=== PATIENT | male | born 1960 | race Caucasian/White ===

== ENCOUNTER 2025-02-03 18:06 | Inpatient (IN) | payer BC, MEDICARE, SELFPAY ==
[2025-02-03] VITALS (11 sets, daily range): BP systolic 103–142; BP diastolic 69–92
[2025-02-03 15:28] LABS: Hematocrit 44.2 % (39.0-52.0); Hemoglobin 15.5 g/dL (13.0-18.0); Mean Corp Hgb Conc. 35.1 g/dL (33.0-37.0); Mean Corpuscular Volume 92.3 fL (80.0-94.0); Nucleated Red Blood Cells % 0 % (-); Platelet Count 195 10^3/uL (130-400); Red Cell Dist. Width 12.7 % (11.5-14.5)
[2025-02-03 15:38] LABS: ALT (SGPT) 38 U/L (0-50); AST (SGOT) 24 U/L (17-59); Albumin 4.4 g/dl (3.5-5.0); Alkaline Phosphatase 89 U/L (38-126); Blood Urea Nitrogen 20 mg/dl (9-20); Calcium 9.6 mg/dl (8.4-10.2); Carbon Dioxide 27 mmol/L (22-30); Chloride 107 mmol/L (98-107); Glucose 91 mg/dl (70-99); Potassium 4.3 mmol/L (3.5-5.1); Sodium 137 mmol/L (135-145); Total Protein 6.8 g/dl (6.3-8.2); eGFR > 60.00
[2025-02-03 15:49] LABS: Troponin I < 0.012 ng/ml
[2025-02-03 15:56] LABS: Magnesium 1.9 mg/dl (1.6-2.3)
--- NOTE | 2025-02-03 16:00 | ED.GENMED ---
History of Present Illness
General
Chief Complaint: Cardiac Symptoms
Source: patient
Time Seen by Provider: 02/03/25 15:34
History of Present Illness
History of Present Illness:
64-year-old male presents to the emergency room for evaluation of abnormal heart rhythms noted on his ICD. Patient has an ICD due to nonischemic cardiomyopathy. He has had ventricular tachycardia multiple times in the past. He has been shocked by
his device. He has had ablations in the past. Patient has been experiencing episodes of lightheadedness and palpitations. No chest pain per se. Patient received a call from [employer] that he has had multiple episodes of ventricular
tachycardia over the past 24 hours. Many have been treated with override pacing. Patient is known to Dr. Cam. He has had no changes in his medications recently.
Phy Exam
Physical Exam
Physical Exam:
General: Awake, Alert, Oriented X3. No acute distress.
Vitals: unremarkable
Head: Atraumatic
Eyes: Pupils equal, EOMI
Throat: Airway intact, no exudates
Neck: Trachea midline
Lungs: Clear and equal b/l
Heart: Regular rate, no murmurs
Abd: Soft, Nontender, No pulsatile mass
Neuro: Nonfocal
Skin: Warm, dry, no rash
Extremities: pulses equal b/l, no edema
Course
Orders/Labs/Results
Orders:
Orders
02/03/25 14:35
EKG [Electrocardiogram (*1)] Urgent
Reason for Study: Tachycardia
EKG- Treatment ONCE
02/03/25 14:53
Interrogate Pacemaker- Treatment ONCE
02/03/25 Dinner
Cholesterol Lowering
At Your Request: Full Participation
Cholesterol Lowering: Sodium, 2 Gram
02/03/25 15:01
Complete Blood Count/With Diff Urgent
Comprehensive Metabolic Panel Urgent
Magnesium Urgent
Phosphorus Urgent
Troponin I Urgent
02/03/25 16:49
CARDIOLOGY CONSULT Routine
Consulting Provider: Gurpreet Cam
Was physician already notified: Yes
02/03/25 16:59
Admit/Transfer Patient As Directed
Co-Sign Provider:
Level of Care: Inpatient admission
Assign to:: IVU
Physician / Group: Brennon Ellis
Diagnosis: ventricular tachycardia
Reason for Hospitalization: ventricular tachycardia
Expected length of stay greater than two midnights?: Yes
ELOS- Estimated Length of Stay in days: 3
I certify the patient meets the requirements for IP care: Yes
02/03/25 17:00
PRN Pain Medication Management As Directed
May give lesser potent ordered pain med per pt: Yes
preference::
Protocol:: Medication orders for pain may be administered in a
manner that supports deferring to patient preference
when the pt is:
- Requesting an ordered lesser potent pain medication.
Least to most potent pain medications are defined
as: acetaminophen < NSAID < tramadol < opioids
(morphine, oxycodone, hydromorphone).
- Requesting a lesser dose of the same medication IF
ORDERED.
- Requesting a less intrusive route of administration
if both routes are prescribed by the provider (PO <
IV).
02/03/25 17:01
Code Status As Directed
Resuscitation Status: Full Code
02/03/25 21:05
Atorvastatin [Lipitor] 20 mg PO QPM
Enoxaparin Sodium [Lovenox] 40 mg SC QPM
Lisinopril [Zestril] 2.5 mg PO BID
Metoprolol Xl [Toprol Xl] 100 mg PO QPM
02/03/25 21:05
Activity As Directed
Activity Level: As Tolerated
INT (Intravenous Needle Therapy) As Directed
Comment: maintain peripheral IV access
Intake/ Output As Directed
Frequency: Per unit guidelines
Vital Signs As Directed
Frequency: Per unit guidelines
Weight As Directed
Frequency: Once
Comment: on admission
DX Deep Vein Thrombosis Video Routine
02/04/25 06:00
Echo 2D MMode Color/Doppler IN AM
Reason for Study: VT, history of CM
NPO
Allow oral meds: Yes
Allow clear liquids: No
Basic Metabolic Panel IN AM
Complete Blood Count/No Diff IN AM
02/04/25 08:00
Aspirin Chewable [Low Strength Aspirin] 81 mg PO DAILY
Flecainide [Tambocor] 100 mg PO Q12
Magnesium Oxide 500 mg PO DAILY
Metoprolol Xl [Toprol Xl] 50 mg PO DAILY
Pantoprazole [Protonix] 40 mg PO DAILY
Potassium Chloride [KCl] 20 meq PO DAILY
Abnormal Lab Results
02/03/25
15:01
MCH 32.4 H pg
(27.0-31.0)
MPV 11.8 H fL
(7.4-10.4)
Abs Immat Gran (auto) 0.1 H 10^3/uL
(0-0.05)
Absolute Monos (auto) 1.0 H 10^3/uL
(0.1-0.6)
Immature Gran % 0.9 H %
(0-0.5)
Monocytes % 10.6 H %
(1.7-9.3)
02/03/25 15:01
02/03/25 15:01
Vital Signs
Initial and Last Documented VS:
Initial Vital Signs
Pulse Resp BP Pulse Ox
71 18 117/76 97
02/03/25 14:42 02/03/25 14:42 02/03/25 14:42 02/03/25 14:42
Last Documented Vital Signs
Pulse Resp BP Pulse Ox
71 16 123/78 96
02/03/25 21:21 02/03/25 20:52 02/03/25 21:21 02/03/25 20:52
MDM/Problems Addressed
Differential Diagnosis Includes:
Electrode abnormality, ventricular tachycardia from ischemia, ventricular tachycardia from scar tissue
MDM/Problems Addressed:
Patient's device detected multiple episodes of ventricular tachycardia. Patient seen by cardiology here in the emergency room. Will require hospitalization to explore reasons why he is having recurrent V. tach. Fortunately patient did not have
any episodes here in the emergency room. Stable for admission.
*Pulse Oximetry
SaO2: 98
Oxygen Mode of Delivery: Room air
Patient hypoxic: no
*EKG
Interpreted by ED Provider?: Yes
Interpretation: abnormal
Heart Rate: 70
Rate: normal
Rhythm: other (Atrial paced)
[place]: normal axis
QRS Pattern: right bundle branch block
Ischemia: non-specific ST changes
*Ferryboat Captain Interpretation
Rate: normal
Interpretation: abnormal
Rhythm: other (Atrial paced)
*Critical Care Note
Total Time (30-74mins, 75-104mins- exclusive of procedures): Not Applicable
ED Attending Note
-
Portions of this chart may have been created with voice recognition software.� Occasional wrong word or��sound alike� substitutions may have occurred due to the inherent limitations of voice recognition software.
Discharge Plan
Departure
Patient Disposition: Admit
Date of Disposition: 02/03/25
Time of Disposition: 16:00
Presentation/result/management discussed w/ accepting MD/DO: Hospitalist
Condition: Fair
Discharge Problem:
Ventricular tachycardia
Interventions
Interventions:
*Risk Screen - Suicide Last Done: 02/03/25 14:42
*General Assessment Last Done: 02/03/25 14:42
*Neglect/Abuse Screening Last Done: 02/03/25 15:46
*ED- Fall Risk Assessment Last Done: 02/03/25 15:46
*ED COVID-19 Vaccine History Last Done: 02/03/25 15:46
*Nursing Disposition Last Done: 02/03/25 21:00
ED- Pulmonary Assessment Last Done: 02/03/25 15:46
ED- Cardiac Assessment Last Done: 02/03/25 15:46
Discharge Date and Time
Discharge Date/Time: 02/03/25 21:00
--- NOTE | 2025-02-03 16:08 | CON.CAR ---
Addendum entered and electronically signed by Gurpreet Cam MD 02/03/25 17:36:
Patient seen and examined
. GILDA Morales's note and assessment
Reviewed his device interrogation demonstrating 29 ATP events for ventricular tachyarrhythmia 160 to 185 bpm. Associated with some lightheadedness although no hemodynamic embarrassment. He has a complex prior ventricular arrhythmia history. He
does have history of coronary disease although at MRI no scar in either right or left ventricle. He has had 3 VT ablations 2 prior elsewhere and I performed his third VT ablation in 2021. He was not noted to have scar on endocardial mapping in
either ventricle or later fractionated signal. He was inducible for a right ventricular tricuspid annular basal septal VT which was poorly tolerated an extensive ablation was performed in the gutter of the RV at the tricuspid annulus and lesions in
opposition from the left ventricular basal septum. The middle cardiac vein was also mapped and demonstrated to be late for activation for the tachyarrhythmia. He is intolerant to amiodarone in the past and has had inefficacy with dofetilide and
mexiletine. We initiated dofetilide after his 2021 procedure and he has been relatively quiet for the last 3 years. Increase stress at home right prior to the ATP events. Given the paucity of scar and some stress related trigger I wonder whether
his mechanism is from automaticity rather than macro reentry.
Currently seen in the ER in sinus rhythm without recent ventricular arrhythmia the last ATP event was 1:52 AM today. Otherwise he feels well except for increased stress and is somewhat anxious about ventricular arrhythmias.
Examination:
H&T normocephalic atraumatic
JVP 6
Cor regular no murmur
Device noted
Device interrogation reviewed
Telemetry reviewed
Alert and orient x 3
Nonfocal neurologically
No extremity edema
Primary Cyber Defense Analyst: Dr. De La Cruz
Primary EP: Dr. Cam
Assessment:
Refractory VT
s/p single lead ICD, removed in 2013 for lead fracture, replaced with SQ-ICD, s/p explant of SQ device with [employer] [place] ICD reimplanted in 01/2020, not MRI compatible
s/p VT ablation at [facility] 2018
s/p VT ablation at [facility] 2019
multiple ATP events on mexiletine
s/p VT ablation at 03/27/22
chronic tikosyn therapy
prior intolerance to amiodarone
30 episodes of VT with ATP termination 02/02/25PTSD secondary to prior ICD shocks
CAD s/p RCA PCI 2009
History of ischemic cardiomyopathy with improved EF
HTN
HLD
RBBB/LAFB
Former smoker/emphysema
Thyroid nodules
Anxiety
ECHO 03/11/2023: EF 50%, mild concentric LVH, basal and mid inferior wall and basal inferolateral segments abnormal, no significant valvular abnormalities
Plan:
- Patient is a pleasant 64-year-old male with past medical history of refractory VT with prior ablation x 3, most recently in 2021 maintained on chronic Tikosyn therapy who presents to the MD after having 30+ episodes of ATP for VT yesterday and
many additional episodes of NSVT which did not require ATP. He felt poorly with heart pounding/racing. Prior to yesterday, he did have an episode of VT requiring ATP on 01/15, as well as 1 on 01/16, and 01/20/2025.
- records obtained and reviewed from Dr. De La Cruz's office including echo, office visit, device interrogation
- Would admit to IVU with plan for Tikosyn washout and will initiate flecainide 100 mg twice daily in a.m. Follow EKG. Given the increased rest recently which correlate with an increase in arrhythmia I wonder whether automaticity is playing a role
given prior absence of electroanatomic scar on biventricular mapping and cardiac MRI demonstrating an absence of cardiac scar despite his history of coronary artery disease.
- Follow closely on telemetry. Could use IV amiodarone overnight if noted to have additional episodes
- Will plan for cardiac catheterization in a.m. to reassess coronary anatomy. initial trop negative
- EKG a paced
- Check echo, last from 2022 with results as above. continue OP asa.
- Potassium stable at 4.3. Check magnesium. continue K/mag repletion
- Continue outpatient ezfi-xgzozsd-Lcmglm 50 mg every morning and 100 mg every afternoon
- Repeat VT ablation would be something to consider if remains refractory, however given 3 prior ablations would attempt to manage medically first.
- Discussed with ER physician
- Discussed with patient and at bedside
- Discussed with IVU nursing
Original Note:
Consultation
Consultation Request
Date/Time Consultation Performed: 02/03/25
Requesting Provider: Dr. Tomlin
Performing Provider: Dali Morales PA-C for Dr. Cam
Reason for Consultation: VT requiring ATP
Medical History
-
Chief Complaint: VT
History of Present Illness:
Patient is a 64-year-old male with past medical history of refractory VT with 3 prior VT ablations, most recently at [facility] 03/2022. He reports he has been doing pretty well with limited VT until a day and a half ago. He reports he
started with heart pounding/palpitations which woke him from sleep around 1AM and had multiple episodes throughout day yesterday. He never received a shock from his device. Upon interrogation from ATC, patient received 30+ rounds of ATP last
evening which terminated his VT episodes. Patient states he has been under increased stress related to issues with his car, and has also been out in the heat a decent amount. He reports he has been taking supplemental potassium and magnesium. He
is chronically on Tikosyn. He has previous intolerances to amiodarone, and mexiletine was inefficacious in past. Cardiology consulted for evaluation. Presently in apaced rhythm by EKG.
PMH:
Refractory VT
s/p single lead ICD, removed in 2013 for lead fracture, replaced with SQ-ICD, s/p explant of SQ device with [employer] ICD reimplanted in 01/2020
s/p VT ablation at [facility] 2018
s/p VT ablation at [facility] 2019
multiple ATP events on mexiletine
s/p VT ablation at 03/27/22
chronic tikosyn therapy
prior intolerance to amiodarone
PTSD secondary to prior ICD shocks
CAD s/p RCA PCI 2009 for '[place]'
History of ischemic cardiomyopathy with improved EF
HTN
HLD
RBBB/LAFB
Former smoker/emphysema
Thyroid nodules
Anxiety
Past Medical History
Past Medical History: Other (in HPI)
Social History
Tobacco: Former Smoker
Personal:
Living: With Family
Employment: Employed
Family History
Family History: CAD
Allergies / Home Medications
Allergy/AdvReac Type Severity Reaction Status Date / Time
No Known Allergies Allergy Verified 02/03/25 14:54
�Medication �Instructions �Recorded �Confirmed �Type
aspirin 81 mg chewable tablet 81 mg PO DAILY Blood clot 03/18/22 03/27/22 History
prevention/tx
atorvastatin 20 mg tablet 20 mg PO HS High cholesterol 03/18/22 03/27/22 History
citalopram 20 mg tablet (Celexa) 20 mg PO DAILY Mental 03/18/22 03/27/22 History
Health/Anxiety
esomeprazole magnesium 20 mg 20 mg PO DAILY Gastrointestinal 03/18/22 03/27/22 History
capsule,delayed release issue
lisinopril 5 mg tablet 2.5 mg PO BID Blood pressure 03/18/22 03/27/22 History
metoprolol succinate 100 mg 100 mg PO HS Heart 03/18/22 03/27/22 History
tablet,extended release 24 hr disease/condition
dofetilide 500 mcg capsule 500 mcg PO Q12H #60 caps 03/30/22 Rx
magnesium oxide 500 mg PO DAILY #30 tabs 03/30/22 Rx
metoprolol succinate 100 mg 100 mg PO DAILY #30 tabs 03/30/22 Rx
tablet,extended release 24 hr
potassium chloride 20 mEq 20 meq PO DAILY #30 tabs 03/30/22 Rx
tablet,extended release
Review of Systems
-
History Source: Patient and Family
All other systems: Negative unless noted
Physical Exam
Vital Signs
Pulse Resp BP Pulse Ox
70 13 121/76 98
02/03/25 15:45 02/03/25 15:45 02/03/25 15:35 02/03/25 16:04
Lab Results
02/03/25 15:01
02/03/25 15:01
Troponin I < 0.012 ng/ml 02/03/25 15:01
Physical Exam
General: No Apparent Distress and Comfortable
HEENT: Normocephalic, Anicteric and Moist Mucous Membranes
Respiratory: Clear and Non Labored Respirations
Cardiac: S1/S2 and Regular Rhythm
GI: Soft, Non Tender, Non Distended and Normal Bowel Sounds
Musculoskeletal: No Clubbing, No Cyanosis and No Edema
Skin: Warm and Dry
Neuro: AO x 3
Impression / Plan
-
Primary Cyber Defense Analyst: Dr. De La Cruz
Primary EP: Dr. Cam
Assessment:
Refractory VT
s/p single lead ICD, removed in 2013 for lead fracture, replaced with SQ-ICD, s/p explant of SQ device with [employer] ICD reimplanted in 01/2020, not MRI compatible
s/p VT ablation at [facility] 2018
s/p VT ablation at [facility] 2019
multiple ATP events on mexiletine
s/p VT ablation at 03/27/22
chronic tikosyn therapy
prior intolerance to amiodarone
30 episodes of VT with ATP termination 02/02/25
PTSD secondary to prior ICD shocks
CAD s/p RCA PCI 2009
History of ischemic cardiomyopathy with improved EF
HTN
HLD
RBBB/LAFB
Former smoker/emphysema
Thyroid nodules
Anxiety
ECHO 03/11/2023: EF 50%, mild concentric LVH, basal and mid inferior wall and basal inferolateral segments abnormal, no significant valvular abnormalities
Plan:
- Patient is a pleasant 64-year-old male with past medical history of refractory VT with prior ablation x 3, most recently in 2021 maintained on chronic Tikosyn therapy who presents to the MD after having 30+ episodes of ATP for VT yesterday and
many additional episodes of NSVT which did not require ATP. He felt poorly with heart pounding/racing. Prior to yesterday, he did have an episode of VT requiring ATP on 01/15, as well as 1 on 01/16, and 04/10/24.
- records obtained and reviewed from Dr. De La Cruz's office including echo, office visit, device interrogation
- Would admit to IVU with plan for Tikosyn washout and will initiate flecainide 100 mg twice daily in a.m. Follow EKG
- Follow closely on telemetry. Could use IV amiodarone overnight if noted to have additional episodes
- Will plan for cardiac catheterization in a.m. to reassess coronary anatomy. initial trop negative
- EKG a paced
- Check echo, last from 2022 with results as above. continue OP asa.
- Potassium stable at 4.3. Check magnesium. continue K/mag repletion
- Continue outpatient plqe-cyudgfj-Wxbknj 50 mg every morning and 100 mg every afternoon
- Repeat VT ablation would be something to consider if remains refractory, however given 3 prior ablations would attempt to manage medically first.
- Discussed with ER physician
- Discussed with patient and at bedside
- Discussed with IVU nursing
Data Reviewed
-
EKG: Tracing Personally Visualized and interpreted
Medical Tests (Nuc Med, Echo etc): Report Reviewed by me
Labs: Labs Reviewed by me
Old Records: Reviewed
--- NOTE | 2025-02-03 16:15 | HPS.HSE ---
Family Physician
-
Family Physician: Bel Hurst
Chief Complaint
-
abnormal heart rhythm noted on ICD
History of Present Illness
Patient is a 64-year-old male with past medical history significant for non-ischemic cardiomyopathy, atrial fibrillation, ventricular tachycardia, hyperthyroidism and CAD who presented to [facility] ED for evaluation of abnormal heart rhythm noted on ICD.
Patient states he received a call from doctors around [phone] telling him to go straight to ED for evaluation of continuous tachycardia being read on his ICD. He reports multiple shocks yesterday. Today he states he was told that override pacing
was attempting to control the tachycardia. Only complaint is increased fatigue. Patient denies any recent illness, fevers, chills, cough, shortness of breath, chest pain, nausea, vomiting or changes to bowel or bladder.
Medical History
Past Medical History
Past Medical History: Reports Other
Additional Past Medical History:
non-ischemic cardiomyopathy
atrial fibrillation
ventricular tachycardia
hyperthyroidism
CAD
PTSD
Past Surgical History: Reports Other
Additional Past Surgical History:
ICD x3
cardiac ablation x3
cardiac cath with stents
Social History
Tobacco: Former Smoker (quit 8-9years ago)
Alcohol: None
Drug: None
Personal:
Living: With Family
Employment: Disabled
Family History
Family History: Not pertinent
Allergies / Home Medications
Allergies reflects when Allergies were last updated in [facility].
Home Medications with original date entered in [facility]
Allergy/Medication List:
Allergies
Allergy/AdvReac Type Severity Reaction Status Date / Time
No Known Allergies Allergy Verified 02/03/25 14:54
Home Medications
aspirin 81 mg chewable tablet 81 mg PO DAILY Blood clot prevention/tx 03/18/22
atorvastatin 20 mg tablet 20 mg PO QPM High cholesterol 03/18/22
citalopram 20 mg tablet (Celexa) 20 mg PO DAILY Mental Health/Anxiety 03/18/22
esomeprazole magnesium 20 mg capsule,delayed release 20 mg PO DAILY Gastrointestinal issue 03/18/22
metoprolol succinate 100 mg tablet,extended release 24 hr 50 mg PO DAILY Heart disease/condition 03/18/22
dofetilide 500 mcg capsule 500 mcg PO Q12H #60 caps 03/30/22
magnesium oxide 500 mg PO DAILY #30 tabs 03/30/22
lisinopril 2.5 mg tablet 2.5 mg PO BID 02/03/25
metoprolol succinate 100 mg tablet,extended release 24 hr 100 mg PO QPM 02/03/25
omega 8-lhj-tjx-fish oil 1,200 mg (144 mg-216 mg) capsule (Fish Oil) 2 cap PO QPM 02/03/25
potassium chloride 20 mEq tablet,extended release(part/cryst) 20 meq PO DAILY 02/03/25
Review of Systems
-
History Source: Patient
Constitutional: Reports Fatigue
EENT: Reports No Symptoms
Respiratory: Reports No Symptoms
Cardiac: Reports No Symptoms
Abdomen/GI: Reports No Symptoms
: Reports No Symptoms
Musculoskeletal: Reports No Symptoms
Skin: Reports No Symptoms
Neurological: Reports No Symptoms
Endocrine: Reports No Symptoms
Hematologic/Lymphatic: Reports No Symptoms
Psych: Reports No Symptoms
Physical Exam
Vital Signs
Vital Signs
Pulse Resp BP Pulse Ox
70 13 121/76 98
02/03/25 15:45 02/03/25 15:45 02/03/25 15:35 02/03/25 16:04
Physical Exam
General: Well Developed, Well Nourished and No Apparent Distress
HEENT: NormoCephalic, Moist mucous membranes and Atraumatic
Respiratory: Clear and Non Labored Respirations
Cardiac: S1/S2 and Regular Rhythm; No Murmur
GI: Soft, Non Tender, Non Distended and Normal Bowel Sounds
Rectal: Deferred by Provider
Musculoskeletal: No Clubbing, No Cyanosis and No Edema
Skin: IV/Catheter Site
Neuro: Awake, AO x 3 and Nonfocal/grossly intact
Psych: Calm and Intact Judgment/Insight
Laboratory Results
-
02/03/25 15:
02/03/25 15:
Laboratory Results
Total Bilirubin 1.1 mg/dl (0.2-1.3) 02/03/25 15:
AST 24 U/L (17-59) 02/03/25 15:
ALT 38 U/L (0-50) 02/03/25 15:
Alkaline Phosphatase 89 U/L (38-126) 02/03/25 15:
Troponin I < 0.012 ng/ml 02/03/25 15:
Data Reviewed
-
Medical Tests (Nuc Med, Echo, EKG etc): Report Reviewed by me (EKG: Atrial-paced rhythm RIGHT BUNDLE BRANCH BLOCK)
Lab Data: Labs Reviewed by me
Impression/Plan
-
IMPRESSION/PLAN:
#Ventricular tachycardia
EKG: Atrial-paced rhythm
RIGHT BUNDLE BRANCH BLOCK
- Admit to IVU
- Consult Cardiology
- Cardiology plan to complete Tikosyn washout and will initiate flecainide
- NPO at midnight for potential cardiac cath
- ECHO in AM
#non-ischemic cardiomyopathy
#atrial fibrillation
#ventricular tachycardia
s/p ICD placement
- continue metoprolol
#CAD
- continue aspirin and atorvastatin
#PTSD
- hold Celexa
Code status: full code
DVT prophylaxis: lovenox sq
--- NOTE | 2025-02-03 16:47 | W.PN.UPDATE ---
Update Note
Progress Note Update
This note serves as an addendum to the H&P by Faby Kate on 02/03/25.
History of Presenting Illness
64-year-old male with past medical history significant for non-ischemic cardiomyopathy, atrial fibrillation, ventricular tachycardia, hyperthyroidism and CAD who presented to [facility] ED for evaluation of abnormal heart rhythm noted on ICD. Patient
stated he received a call from doctors around [phone] telling him to go straight to ED for evaluation of continuous tachycardia being read on his ICD. Today he states he was told that override pacing was attempting to control the tachycardia. He
reported fatigue, but denied any recent illness, fevers, chills, cough, shortness of breath, chest pain, nausea, vomiting or changes to bowel or bladder.
Vital Signs
AFVSS
Physical Exam
General: Well Developed, Well Nourished and No Apparent Distress
HEENT: Normocephalic, Moist mucous membranes and Atraumatic
Respiratory: Clear and Non Labored Respirations
Cardiac: S1/S2 and Regular Rhythm
GI: Soft, Non Tender, Non Distended and Normal Bowel Sounds
Musculoskeletal: No Cyanosis and No Edema
Skin: Warm. Dry.
Neuro: Awake, AO x 3 and Nonfocal/grossly intact
Psych: Calm and Intact Judgment/Insight
Assessment/Plan
#Refractory Ventricular Tachycardia on chronic Tikosyn Therapy
#History of refractory VT with prior ablation x 3
- Admit to IVU
- Consult Cardiology
- Cardiology plan to complete Tikosyn washout and will initiate flecainide tomorrow
- Continue outpatient elxc-sgppkzi-Rkkana 50 mg every morning and 100 mg every afternoon
- EKG tomorrow
- NPO at midnight for cardiac cath tomorrow to look at coronary anatomy
- ECHO in AM
- Monitor and optimize potassium and magnesium
#CAD s/p RCA PCI 2009
- continue aspirin and atorvastatin
- Continue outpatient yjnk-jfryhrd-Txrbus 50 mg every morning and 100 mg every afternoon
#History of ischemic cardiomyopathy with improved EF
- Continue medications as above
#HTN
- Continue beta talat
#HLD
- Continue Atorvastatin
#RBBB/LAFB
#Former smoker/emphysema
#Thyroid nodules
#Anxiety
#PTSD
- hold Celexa given prolonged QTc
Code status: Full Code
DVT prophylaxis: Lovenox subq
--- NOTE | 2025-02-03 21:13 | PTCARENOTE ---
received the patient from the ED. AAOx3. denies any cp/sob. Apaced on tele 70s. bp 142.92. reviewed plan of care with patient and verbalized understanding. NPO at midnight. independent in the room. call escobedo within reach.
[2025-02-03] MEDS: TOPROL XL 100 MG PO (21:21)
[2025-02-03] MEDS: LIPITOR 20 MG PO (21:21)
[2025-02-03] MEDS: ZESTRIL 2.5 MG PO (21:22)
[2025-02-03] MEDS: LOVENOX 40 MG SC (21:22)
[2025-02-03 21:48] LABS: Troponin I 0.013 ng/ml
[2025-02-04] VITALS (16 sets, daily range): BP systolic 90–125; BP diastolic 64–85; BMI 31.2
[2025-02-04 04:16] LABS: Hematocrit 44.9 % (39.0-52.0); Hemoglobin 15.6 g/dL (13.0-18.0); Mean Corp Hgb Conc. 34.7 g/dL (33.0-37.0); Mean Corpuscular Volume 93.3 fL (80.0-94.0); Platelet Count 177 10^3/uL (130-400); Red Cell Dist. Width 12.7 % (11.5-14.5)
[2025-02-04 04:44] LABS: Blood Urea Nitrogen 19 mg/dl (9-20); Calcium 9.5 mg/dl (8.4-10.2); Carbon Dioxide 25 mmol/L (22-30); Chloride 109 mmol/L (98-107); Estimated Creatinine Clearance 117 ml/min; Glucose 101 mg/dl (70-99); Magnesium 1.9 mg/dl (1.6-2.3); Potassium 4.1 mmol/L (3.5-5.1); Sodium 139 mmol/L (135-145); eGFR > 60.00
[2025-02-04 04:56] LABS: Troponin I < 0.012 ng/ml
--- NOTE | 2025-02-04 07:25 | W.PN.CARDCBS ---
Addendum entered and electronically signed by Gurpreet Cam MD 02/04/25 09:33:
patient seen and examined
agree with GILDA Morales's plan
exam:
Per GILDA Morales
AAo x 3
non focal neurologically
cor regular
jvp flat
no edema
Assessment:
Refractory VT
s/p single lead ICD, removed in 2013 for lead fracture, replaced with SQ-ICD, s/p explant of SQ device with [place] [employer] DC ICD reimplanted in 01/2020, not MRI compatible
s/p VT ablation at [facility] 2018
s/p VT ablation at [facility] 2019
multiple ATP events on mexiletine
s/p VT ablation at 03/27/22
chronic tikosyn therapy
prior intolerance to amiodarone
30 episodes of VT with ATP termination 02/02/25PTSD secondary to prior ICD shocks
CAD s/p RCA PCI 2009
History of ischemic cardiomyopathy with improved EF
HTN
HLD
RBBB/LAFB
Former smoker/emphysema
Thyroid nodules
Anxiety
ECHO 03/11/2023: EF 50%, mild concentric LVH, basal and mid inferior wall and basal inferolateral segments abnormal, no significant valvular abnormalities
Plan:
-no VT overnight noted on review of tele, however is noted to have some brief AT. will increase toprol to 100mg BID
-start flecainide 100mg BID
-NPO for cardiac cath today. initial trop negative
-check echo
-follow K/mag. attempt to keep K>4 and mag>2
- Repeat VT ablation would be something to consider if remains refractory, however given 3 prior ablations would attempt to manage medically first. His arrhythmias appear to have an automatic component and flecainide or amiodarone can help there. He
has not tolerated amiodarone in the past
-for possible DC later today vs in AM pending results of cath, echo, and tele monitoring.
-will arrange OP follow up with ATC as well as Dr. Cam
Original Note:
Today's Communication / Plan
-
cath
echo
start flecainide
increase toprol to 100mg BID
Impression / Plan
-
Primary Acute Care Surgeon: Dr. De La Cruz
Primary EP: Dr. Cam
Assessment:
Refractory VT
s/p single lead ICD, removed in 2013 for lead fracture, replaced with SQ-ICD, s/p explant of SQ device with [employer] DC ICD reimplanted in 01/2020, not MRI compatible
s/p VT ablation at [facility] 2018
s/p VT ablation at [facility] 2019
multiple ATP events on mexiletine
s/p VT ablation at 03/27/22
chronic tikosyn therapy
prior intolerance to amiodarone
30 episodes of VT with ATP termination 02/02/25
PTSD secondary to prior ICD shocks
CAD s/p RCA PCI 2009
History of ischemic cardiomyopathy with improved EF
HTN
HLD
RBBB/LAFB
Former smoker/emphysema
Thyroid nodules
Anxiety
ECHO 03/11/2023: EF 50%, mild concentric LVH, basal and mid inferior wall and basal inferolateral segments abnormal, no significant valvular abnormalities
Plan:
-no VT overnight noted on review of tele, however is noted to have some brief AT. will increase toprol to 100mg BID
-start flecainide 100mg BID
-NPO for cardiac cath today. initial trop negative
-check echo
-follow K/mag. attempt to keep K>4 and mag>2
- Repeat VT ablation would be something to consider if remains refractory, however given 3 prior ablations would attempt to manage medically first.
-for possible DC later today vs in AM pending results of cath, echo, and tele monitoring.
-will arrange OP follow up with ATC as well as Dr. Cam
Progress Note - Acute Care Surgeon
Subjective
Date of Service: February 04, 2025
No complaints/issues overnight
Objective
Labs:
02/04/25 04:04
02/04/25 04:04
Labs
Hgb 15.6 g/dL (13.0-18.0) 02/04/25 04:04
Hct 44.9 % (39.0-52.0) 02/04/25 04:04
Plt Count 177 10^3/uL (130-400) 02/04/25 04:04
Sodium 139 mmol/L (135-145) 02/04/25 04:04
Potassium 4.1 mmol/L (3.5-5.1) 02/04/25 04:04
BUN 19 mg/dl (9-20) 02/04/25 04:04
Creatinine 0.7 mg/dL (0.7-1.3) 02/04/25 04:04
Glucose 101 mg/dl (70-99) H 02/04/25 04:04
Troponins
02/03/25 02/03/25 02/04/25
15:01 21:10 04:04
Troponin I < 0.012 0.013 < 0.012
Vital Signs and I&O:
Vital Signs
Temp Pulse Resp BP Pulse Ox
97.8 F 70 17 97/72 94
02/04/25 03:30 02/04/25 06:30 02/04/25 03:30 02/04/25 04:01 02/04/25 03:30
Vital Signs
Temp Pulse Resp BP Pulse Ox
97.8 F 70 17 97/72 94
02/04/25 03:30 02/04/25 06:30 02/04/25 03:30 02/04/25 04:01 02/04/25 03:30
Intake & Output
07/02/02/25 02/03/25 02/04/25
07:59 07:59 07:59 07:59
Intake Total 400 / 400
Balance 400 / 400
Physical Exam
Physical Exam
GEN: No distress, awake, alert, oriented x3
HEENT: supple, anicteric, mmm, eomi
LUNGS: CTA B/L, no wheezes/rales
CV: Reg, S1/S2, no murmur
ABD: soft, BS+, NT/ND
EXT: No cyanosis, clubbing, edema
NEURO: Gross non-focal
SKIN: Warm, pink, dry. No rash
[2025-02-04] MEDS: LOW STRENGTH ASPIRIN 81 MG PO (08:49)
[2025-02-04] MEDS: PROTONIX 40 MG PO (08:49)
[2025-02-04] MEDS: ZESTRIL 2.5 MG PO ×2 (08:49→20:50)
[2025-02-04] MEDS: KCL 20 MEQ PO (08:49)
[2025-02-04] MEDS: MAGNESIUM OXIDE 500 MG PO (08:49)
[2025-02-04] MEDS: TAMBOCOR 100 MG PO ×2 (09:42→20:49)
[2025-02-04] MEDS: TOPROL XL 100 MG PO ×2 (09:43→20:50)
--- NOTE | 2025-02-04 14:10 | W.PN.HOSP.TC ---
Today's Communication/Plan
-
Echo showed EF 30% today
I discussed with cardiology -- patient needs to be kept here overnight to fine tune GDMT
Beta talat increased
Continue to monitor in IVU
Assessment / Plan
Assessment / Plan
Physical Exam
General: Well Developed, Well Nourished and No Apparent Distress
HEENT: Normocephalic, Moist mucous membranes and Atraumatic
Respiratory: Clear and Non Labored Respirations
Cardiac: S1/S2 and Regular Rhythm
GI: Soft, Non Tender, Non Distended and Normal Bowel Sounds
Musculoskeletal: No Cyanosis and No Edema
Skin: Warm. Dry.
Neuro: Awake, AO x 3 and Nonfocal/grossly intact
Psych: Calm and Intact Judgment/Insight
Assessment/Plan
64-year-old male with past medical history significant for non-ischemic cardiomyopathy, atrial fibrillation, ventricular tachycardia, hyperthyroidism and CAD who presented to [facility] ED for evaluation of abnormal heart rhythm noted on ICD. Patient
stated he received a call from doctors around [phone] telling him to go straight to ED for evaluation of continuous tachycardia being read on his ICD. Today he states he was told that override pacing was attempting to control the tachycardia. He
reported fatigue, but denied any recent illness, fevers, chills, cough, shortness of breath, chest pain, nausea, vomiting or changes to bowel or bladder.
#Refractory Ventricular Tachycardia on chronic Tikosyn Therapy
#History of refractory VT with prior ablation x 3
#History of Intolerance to Amiodarone
#HFrEF
- Consulted Cardiology
- Start Flecainide 100 mg BID
- Outpatient hiyb-qheqzmf-Mnrlmi increased to 100 mg BID (at home, was on 50 mg every morning and 100 mg every afternoon)
- ECHO with EF 30%
- Monitor and optimize potassium and magnesium; strive to keep K>4 and mag>2
- Optimize GDMT given EF
- Continue to monitor in IVU
#CAD s/p RCA PCI 2009
- continue aspirin and atorvastatin
- Continue outpatient dfei-kiooxvg-Atbimb 50 mg every morning and 100 mg every afternoon
#HFrEF
#History of ischemic cardiomyopathy with improved EF
- Continue medications as above
#HTN
- Continue beta talat but at increased dose
#HLD
- Continue Atorvastatin
#RBBB/LAFB
#Former smoker/emphysema
#Thyroid nodules
#Anxiety
#PTSD
- hold Celexa given prolonged QTc
Code status: Full Code
DVT prophylaxis: Lovenox subq
Anticipated Discharge: Within 24 hours
Subjective/Interval History
-
Date of Service: February 04, 2025
Patient was seen and examined. He denied any chest pain or any other complaints.
Objective Data
-
Labs:
Laboratory Results
02/04/25
04:04
WBC 9.1
Hgb 15.6
Hct 44.9
Plt Count 177
Sodium 139
Potassium 4.1
Chloride 109 H
Carbon Dioxide 25
BUN 19
Creatinine 0.7
Glucose 101 H
Calcium 9.5
Vital Signs:
Vital Signs
Temp Pulse Resp BP Pulse Ox
98.1 F 71 20 102/76 96
02/04/25 11:52 02/04/25 12:45 02/04/25 11:52 02/04/25 11:51 02/04/25 11:52
I&O
02/03/25 02/04/25 02/05/25
06:59 06:59 06:59
Intake Total 400 / 400
Balance 400 / 400
[2025-02-04] MEDS: NSS 1000 IV (14:19)
--- NOTE | 2025-02-04 15:48 | W.PN.UPDATE ---
Update Note
Progress Note Update
reviewed echo findings with patient, EF now 30%. will plan to keep patient overnight for additional observation. continue flecainide. consider addition of aldactone if BP tolerates in AM. would consider for repeat cardiac MRI as OP. d/w hospitalist.
--- NOTE | 2025-02-04 17:12 | CM ---
spoke to pt in room, he is prev indep, lives with his fernanda 2 story home with 2 steps to enter. he denies any dc planning needs or dme's. plan is for dc to home when medically stable.
[2025-02-04] MEDS: LOVENOX 40 MG SC (18:14)
[2025-02-04] MEDS: LIPITOR 20 MG PO (18:14)
--- NOTE | 2025-02-04 18:42 | ITS.CL.CATH ---
[employer] - Catheterization
Cardiac Catheterization
Procedure Report:
LEFT HEART CATHETERIZATION
Date of Procedure: February 04, 2025
Referring: Gurpreet Cam
PROCEDURES:
1. Left heart catheterization, coronary angiogram.
2. Moderate sedation.
INDICATION: Ventricular tachycardia
ACCESS: Right radial artery, 6Fr. sheath, under US guidance.
HEMODYNAMICS : (mmHg)
AO (s/d) : 80/58
LVEDP : 16
No significant gradient across the aortic valve to suggest aortic stenosis.
CORONARY FINDINGS
Dominance: Right
Left Main Trunk (LMT): Large caliber vessel that gives rise to the LAD and LCx branches and is free of angiographic disease.
Left Anterior Descending Artery (LAD): Large caliber vessel that gives off 1 major diagonal branch as it courses along the anterior inter-ventricular groove before wrapping around the cardiac apex. There is mild to moderate diffuse atherosclerotic
plaque with coronary slow flow noted into the distal vessel without significant improvement from intracoronary nitroglycerin.
Left Circumflex Artery (LCx): Large caliber vessel that gives off 1 major arborizing obtuse marginal (OM) branch as it courses along the atrio-ventricular (AV) groove. There is mild diffuse atherosclerotic plaque with slow coronary flow not
significantly improved with intracoronary nitroglycerin.
Right Coronary Artery (RCA): Large caliber dominant vessel that gives rise to the posterior descending artery (RPDA) and postero-lateral ventricular (RPLV) branches distally. There is mild to moderate diffuse atherosclerotic plaque with slow
coronary flow not significantly improved post IC nitroglycerin. No obstructive lesions noted.
SEDATION: 47 minutes of procedural sedation was utilized. IV Midazolam and IV Fentanyl were administered. An independent lead medical technologist was present to assist with and help manage the patient's level of consciousness and physiologic status.
RADIATION SUMMARY: Fluoro Time (min): 2.9, Dose (mGy): 580.15, DAP (Gy.cm2) : 42 point
Closure Device: There were no immediate intra-procedural complications. The sheath was pulled in the hot plate plywood press laborer and a vascular-band applied to the right wrist for radial artery hemostasis using the patent hemostasis technique.
CONCLUSIONS
1. No obstructive coronary artery disease.
2. Coronary slow flow noted without significant improvement from IC nitroglycerin.
3. LVEDP of 16 mmHg.
RECOMMENDATIONS
1. Wean radial band per protocol. Monitor right hand perfusion and for bleeding from the radial site following removal of the vascular-band following trans-radial access.
2. Continue aggressive medical therapy and risk factor modification for secondary CAD prevention.
3. Hydrate with normal saline to mitigate the risk of contrast-induced acute kidney injury.
4. Defer management of ventricular tachycardia to electrophysiology. Consider low-dose amlodipine for coronary slow flow noted on the angiogram.
Kathy Ceron MD, FACC, [facility]
--- NOTE | 2025-02-04 18:49 | PTCARENOTE ---
Pt denies any discomfort. Pt had cardiac cath via right radial artery, radial band removed without problem, no sign of bleeding or hematoma. Pt up walking in halls independently. Telemetry shows 100% paced rhythm at a rate @70's. Metoprolol dose
increased this morning and pt started on Flecanide. Echo done at bedside showing reduced EF to 30%.
--- NOTE | 2025-02-04 22:56 | PTCARENOTE ---
Pt mostly A-paced with some non-paced NSR in the 70's ; VSS. Right radial cath site CDI with no drainage / hematoma, radial pulse normal. No complaints of pain. Pt. very pleasant, hoping for discharge in AM. Currently resting quietly.
[2025-02-05 04:15] VITALS: BP 108/72
[2025-02-05 04:54] LABS: Hematocrit 44.5 % (39.0-52.0); Hemoglobin 15.7 g/dL (13.0-18.0); Mean Corp Hgb Conc. 35.3 g/dL (33.0-37.0); Mean Corpuscular Volume 92.1 fL (80.0-94.0); Platelet Count 184 10^3/uL (130-400); Red Cell Dist. Width 12.7 % (11.5-14.5)
[2025-02-05 05:21] LABS: Blood Urea Nitrogen 16 mg/dl (9-20); Calcium 9.8 mg/dl (8.4-10.2); Carbon Dioxide 24 mmol/L (22-30); Chloride 108 mmol/L (98-107); Estimated Creatinine Clearance > 125 ml/min; Glucose 108 mg/dl (70-99); Magnesium 2.0 mg/dl (1.6-2.3); Potassium 4.3 mmol/L (3.5-5.1); Sodium 138 mmol/L (135-145); eGFR > 60.00
[2025-02-05 08:15] VITALS: BP 112/72
--- NOTE | 2025-02-05 08:27 | W.PN.CARDCBS ---
Addendum entered and electronically signed by Rai Kang MD 02/05/25 10:17:
Patient seen, interviewed and examined by me.
Well-appearing, no acute distress
Regular rate and rhythm with normal S1 and S2, no S3 no S4. There is a grade 1/6 apical holosystolic murmur and no rubs. PMI is normally placed.
Lungs are clear to auscultation bilaterally without wheezes rales or rhonchi.
Abdomen soft nontender nondistended with normoactive bowel sounds
Extremities show trace pretibial edema bilaterally no clubbing or cyanosis.
Neurologic exam is grossly nonfocal.
He has had no recurrence of sustained ventricular arrhythmias.
No new coronary disease on coronary angiography yesterday
Antiarrhythmic drug therapy has been complex.
This hospital stay we have switched him to flecainide (stopped dofetilide) to help manage what is likely at least in part an automatic mechanism to his recent bouts of ventricular tachycardia.
He is tolerating well.
All of his questions answered.
He is stable for discharge to home today
Hemodynamically stable
Original Note:
Today's Communication / Plan
-
ok for DC to home today
flecainide 100mg BID
toprol 100mg BID
lisinopril 2.5mg BID
lipitor 20mg QPM
mag oxide 500mg daily
Kcl 20 mEq daily
OP cardiac follow up arranged
Impression / Plan
-
Primary Tracer Bullet Section Supervisor: Dr. De La Cruz
Primary EP: Dr. Cam
Assessment:
Refractory VT
s/p single lead ICD, removed in 2013 for lead fracture, replaced with SQ-ICD, s/p explant of SQ device with [employer] [employer] DC ICD reimplanted in 01/2020, not MRI compatible
s/p VT ablation at [facility] 2018
s/p VT ablation at [facility] 2019
multiple ATP events on mexiletine
s/p VT ablation at 03/27/22
chronic tikosyn therapy
prior intolerance to amiodarone
30 episodes of VT with ATP termination 02/02/25
PTSD secondary to prior ICD shocks
CAD s/p RCA PCI 2009
History of ischemic cardiomyopathy with improved EF
HTN
HLD
RBBB/LAFB
Former smoker/emphysema
Thyroid nodules
Anxiety
ECHO 03/11/2023: EF 50%, mild concentric LVH, basal and mid inferior wall and basal inferolateral segments abnormal, no significant valvular abnormalities
Plan:
- No VT noted on review of telemetry overnight. Also with decreased ectopy, and no atrial tachycardia noted
- Continue flecainide 100 mg twice daily and Toprol 100 mg twice daily
- Cardiac catheterization with nonobstructive coronary disease. Did note some slow flow
- Echo showed reduction in EF to 30%. GDMT of cardiomyopathy limited by hypotension. Currently on Toprol 100 mg twice daily (dose increased this admission) and lisinopril 2.5 mg twice daily. Would consider addition of Aldactone as OP if BP
tolerates
- attempt to keep K>4 and mag>2
- Repeat VT ablation would be something to consider if remains refractory, however given 3 prior ablations would attempt to manage medically first.
- Plan for discharge today
- OP follow up with ATC as well as Dr. Cam arranged. will need repeat echo in several months to reassess EF. would also consider for repeat OP cardiac MRI
Progress Note - Tracer Bullet Section Supervisor
Subjective
Date of Service: February 05, 2025
no complaints overnight. states he feels very well.
Objective
Labs:
02/05/25 04:28
02/05/25 04:28
Labs
Hgb 15.7 g/dL (13.0-18.0) 02/05/25 04:28
Hct 44.5 % (39.0-52.0) 02/05/25 04:28
Plt Count 184 10^3/uL (130-400) 02/05/25 04:28
Sodium 138 mmol/L (135-145) 02/05/25 04:28
Potassium 4.3 mmol/L (3.5-5.1) 02/05/25 04:28
BUN 16 mg/dl (9-20) 02/05/25 04:28
Creatinine 0.6 mg/dL (0.7-1.3) L 02/05/25 04:28
Glucose 108 mg/dl (70-99) H 02/05/25 04:28
Troponins
02/03/25 02/03/25 02/04/25
15:01 21:10 04:04
Troponin I < 0.012 0.013 < 0.012
02/04/25 02/04/25
09:00 15:00
Troponin I Cancelled Cancelled
Vital Signs and I&O:
Vital Signs
Temp Pulse Resp BP Pulse Ox
97.9 F 71 18 108/72 95
02/05/25 08:12 02/05/25 05:00 02/05/25 08:12 02/05/25 04:15 02/05/25 08:12
Vital Signs
Temp Pulse Resp BP Pulse Ox
97.9 F 71 18 108/72 95
02/05/25 08:12 02/05/25 05:00 02/05/25 08:12 02/05/25 04:15 02/05/25 08:12
Intake & Output
02/03/25 02/04/25 02/05/25 02/06/25
07:59 07:59 07:59 07:59
Intake Total 400 / 400 1005 / 1005
Balance 400 / 400 1005 / 1005
Physical Exam
Physical Exam
GEN: No distress, awake, alert, oriented x3
HEENT: supple, anicteric, mmm, eomi
LUNGS: CTA B/L, no wheezes/rales
CV: Reg, S1/S2, no murmur
ABD: soft, BS+, NT/ND
EXT: No cyanosis, clubbing, edema
NEURO: Gross non-focal
SKIN: Warm, pink, dry. No rash. R wrist site soft, NTTP, mild rishi-incisional ecchymoses
[2025-02-05] MEDS: TAMBOCOR 100 MG PO (08:31)
[2025-02-05] MEDS: PROTONIX 40 MG PO (08:31)
[2025-02-05] MEDS: TOPROL XL 100 MG PO (08:32)
[2025-02-05] MEDS: LOW STRENGTH ASPIRIN 81 MG PO (08:32)
[2025-02-05] MEDS: ZESTRIL 2.5 MG PO (08:32)
[2025-02-05] MEDS: KCL 20 MEQ PO (08:32)
[2025-02-05] MEDS: MAGNESIUM OXIDE 500 MG PO (08:33)
--- NOTE | 2025-02-05 10:26 | W.PN.HOSP.TC ---
Today's Communication/Plan
-
Discharge today
Assessment / Plan
Assessment / Plan
Physical Exam
General: Well Developed, Well Nourished and No Apparent Distress
HEENT: Normocephalic, Moist mucous membranes and Atraumatic
Respiratory: Clear and Non Labored Respirations
Cardiac: S1/S2 and Regular Rhythm
GI: Soft, Non Tender, Non Distended and Normal Bowel Sounds
Musculoskeletal: No Cyanosis and No Edema
Skin: Warm. Dry.
Neuro: Awake, AO x 3 and Nonfocal/grossly intact
Psych: Calm and Intact Judgment/Insight
Assessment/Plan
64-year-old male with past medical history significant for non-ischemic cardiomyopathy, atrial fibrillation, ventricular tachycardia, hyperthyroidism and CAD who presented to [facility] ED for evaluation of abnormal heart rhythm noted on ICD. Patient
stated he received a call from doctors around [phone] telling him to go straight to ED for evaluation of continuous tachycardia being read on his ICD. Today he states he was told that override pacing was attempting to control the tachycardia. He
reported fatigue, but denied any recent illness, fevers, chills, cough, shortness of breath, chest pain, nausea, vomiting or changes to bowel or bladder.
#Refractory Ventricular Tachycardia on chronic Tikosyn Therapy
#History of refractory VT with prior ablation x 3
#History of Intolerance to Amiodarone
#HFrEF
- Consulted Cardiology
- Continue Flecainide 100 mg BID
- Outpatient qupx-aoaedgd-Rkdyns increased to Toprol XL 100 mg BID (at home, was on 50 mg every morning and 100 mg every afternoon)
- ECHO with EF 30%
- Monitor and optimize potassium and magnesium; strive to keep K>4 and mag>2
- Optimize GDMT given EF
- Continue to monitor in IVU
#CAD s/p RCA PCI 2009
- continue aspirin and atorvastatin
- Continue outpatient bsqb-[id number]-Lwkkvg 50 mg every morning and 100 mg every afternoon
#HFrEF
#History of ischemic cardiomyopathy with improved EF
- Continue medications as above
#HTN
- Continue beta talat but at increased dose
#HLD
- Continue Atorvastatin
#RBBB/LAFB
#Former smoker/emphysema
#Thyroid nodules
#Anxiety
#PTSD
- hold Celexa given prolonged QTc
Code status: Full Code
DVT prophylaxis: Lovenox subq
More than 30 minutes spent in discharge including
Final examination of the patient
Summarizing hospital stay
Instructions for continuing care to all relevant caregivers
Preparation of discharge records, prescriptions, and referral forms
Total time spent (in minutes): 37
Anticipated Discharge: Today
Subjective/Interval History
-
Date of Service: February 05, 2025
Patient was seen and examined. He denied any chest pain, shortness of breath or any other symptoms or complaints.
Objective Data
-
Labs:
Laboratory Results
02/05/25
04:28
WBC 10.0
Hgb 15.7
Hct 44.5
Plt Count 184
Sodium 138
Potassium 4.3
Chloride 108 H
Carbon Dioxide 24
BUN 16
Creatinine 0.6 L
Glucose 108 H
Calcium 9.8
Vital Signs:
Vital Signs
Temp Pulse Resp BP Pulse Ox
97.9 F 72 18 112/72 95
02/05/25 08:12 02/05/25 09:00 02/05/25 08:12 02/05/25 08:15 02/05/25 08:12
I&O
02/04/25 02/05/25 02/06/25
06:59 06:59 06:59
Intake Total 400 / 400 1005 / 1005
Balance 400 / 400 1005 / 1005
[2025-02-05 12:07] VITALS: BP 108/69
--- NOTE | 2025-02-05 13:45 | PTCARENOTE ---
Pt ambulating in halls with , shae well, no c/o pain or SOB.
--- NOTE | 2025-02-05 14:51 | W.DCSUMMARY ---
Discharge Summary
Discharge Data
Date of Admission: 02/03/25
Date of Discharge: 02/05/25
Total time spent discharging patient (in min): 37
-
Pending Results: No
Hospital Course
64-year-old male with past medical history of refractory ventricular tachycardia (VT) with 3 prior VT ablations, non-ischemic cardiomyopathy, atrial fibrillation, hyperthyroidism and coronary artery disease, who presented after having heart
pounding/palpitations which woke him from sleep and had multiple episodes throughout day, the day before. Per cardiology, he never received a shock from his device and upon interrogation from ATC, patient received 30+ rounds of ATP last evening
which terminated his VT episodes. Patient had been under increased stress related to issues with his car, and had also been out in the heat a decent amount. Patient's Tikosyn was stopped and allowed to wash out and patient was started on Flecainide.
Echocardiogram was done and it showed an ejection fraction of 30%. Cardiac cath was done and it showed no obstructive coronary artery disease, coronary slow flow noted without significant improvement from IC nitroglycerin and LVEDP of 16 mmHg. In
addition to his new Flecainide (and discontinuation of Tikosyn), patient's beta talat was increased. Patient was doin well and stable for discharge.
Discharge Plan
-
Patient Disposition: Home (Routine Discharge)
Discharge Diagnosis/Procedures: ventricular tachycardia, Cardiac cath
#Refractory Ventricular Tachycardia on chronic Tikosyn Therapy
#History of refractory VT with prior ablation x 3
#History of Intolerance to Amiodarone
#Heart Failure with Reduced Ejection Fraction (but has history of ischemic cardiomyopathy with improved ejection fraction)
#Coronary Artery Disease status post RCA PCI 2009
#Hypertension
#Hyperlipidemia
#RBBB/LAFB
#Former smoker/emphysema
#Thyroid nodules
#Anxiety
#PTSD
Condition: Good
Diet: Low Fat, Low Cholesterol, Low Sodium and Restrict fluids to 64 oz
Driving Restrictions: No driving for 24 hours
Specialty Instructions: Weigh Daily- Call MD for wt gain/loss 3 lbs overnight/5 lbs in 1 week
Instructions: Flecainide
Stand Alone Forms: DC Instructions- Cath/EP Lab
Referrals:
Mariaa De La Cruz MD [Affiliate, Cardiology]
Referral Note: Dr. De La Cruz's office will call you with an appointment.
Gurpreet Cam MD [Active, Cardiology] - 03/30/25 4:20 pm
Referral Note: You have a EP follow-up appointment at [facility]. Please call with questions
Bel Hurst MD [Family Provider, Family Practice] - in less than 1 week
Referral Note: Hospitalization Follow-Up. Will need CBC, BMP, Magnesium check
Additional Discharge Medication Instructions: STOP tikosyn, you are now on flecainide!
Metoprolol Succinate has been increased to 100 mg twice a day (no longer 50 once a day and 100 mg once a day)
Celexa stopped given risk for QTc prolongation on electrocardiogram
Prescriptions:
New
metoprolol succinate 100 mg Tablet Extended Release 24 Hr
100 mg PO BID Qty: 60 1RF
flecainide 100 mg Tablet
100 mg PO Q12 Qty: 60 1RF
Continued
atorvastatin 20 mg Tablet
20 mg PO QPM
aspirin 81 mg Tablet,Chewable
81 mg PO DAILY
esomeprazole magnesium 20 mg Capsule,Delayed Release(Dr/Ec)
20 mg PO DAILY
magnesium oxide 500 mg Tablet
500 mg PO DAILY Qty: 30 5RF
potassium chloride 20 mEq Tablet,Er Particles/Crystals
20 meq PO DAILY
lisinopril 2.5 mg Tablet
2.5 mg PO BID
omega 1-ubi-rnz-fish oil [Fish Oil] 1,200 (144-216) mg Capsule
2 cap PO QPM
Discontinued
metoprolol succinate 100 mg Tablet Extended Release 24 Hr
50 mg PO DAILY
citalopram [Celexa] 20 mg Tablet
20 mg PO DAILY
dofetilide 500 mcg Capsule
500 mcg PO Q12H Qty: 60 5RF
metoprolol succinate 100 mg tablet extended release 24 hr
100 mg PO QPM
Discharge Orders:
Discharge Patient (As Directed); Ordered 02/05/25
Ordered By: Brennon Ellis
Care Plan Goals
Care Plan Goals:
Problem: Readiness for enhanced knowledge related to diagnosis and treatment plan
Goal: Understand your diagnosis and treatment plan needs, including medications if applicable.
Instructions: Know your diagnosis, underlying causes and treatment plan options, including medications if applicable. Consult with your health care team to learn about your diagnosis and treatment plan, including medications if applicable.
Discharge Date and Time
Discharge Date/Time: 02/05/25 15:15
Print Language: UPPER SORBIAN
== END 2025-02-05 15:15 | disposition home or self-care (01) | DRG 287 ==
LOC: IVU 18:06
PROVIDERS: Emergency Medicine; Internal Medicine Interventional Cardiology; Nurse Practitioner Family; ADMITTING PHYSICIAN Hospitalist; CONSULT PHYSICIAN Internal Medicine Cardiovascular Disease; EMERGENCY PHYSICIAN Emergency Medicine; FAMILY PHYSICIAN Family Medicine
PROC: B2111ZZ Fluoroscopy of Multiple Coronary Arteries using Low Osmolar Contrast (ICD-10-PCS; 2025-02-04)
PROC: 4A023N7 Measurement of Cardiac Sampling and Pressure, Left Heart, Percutaneous Approach (ICD-10-PCS; 2025-02-04)
DX: I47.20 Ventricular tachycardia, unspecified (principal); I50.22 Chronic systolic (congestive) heart failure; I11.0 Hypertensive heart disease with heart failure; I25.10 Atherosclerotic heart disease of native coronary artery without angina pectoris; Z98.61 Coronary angioplasty status; E78.00 Pure hypercholesterolemia, unspecified; I45.10 Unspecified right bundle-branch block; J43.9 Emphysema, unspecified; Z87.891 Personal history of nicotine dependence; E05.20 Thyrotoxicosis with toxic multinodular goiter without thyrotoxic crisis or storm; F41.9 Anxiety disorder, unspecified; F43.10 Post-traumatic stress disorder, unspecified; Z79.82 Long term (current) use of aspirin; Z79.899 Other long term (current) drug therapy; Z95.810 Presence of automatic (implantable) cardiac defibrillator; I48.91 Unspecified atrial fibrillation
CPT/HCPCS: 80048; 80053; 83735; 84100; 84484; 85025; 85027; 93005; 93306; 93458; 99152; 99153; 99284; Q9950; Q9967

== ENCOUNTER → 2025-05-16 09:46 | Outpatient (REF) | payer BC, MEDICARE, SELFPAY | LOC: RCS 09:46 | PROVIDERS: ATTENDING PHYSICIAN Nurse Practitioner; FAMILY PHYSICIAN Internal Medicine Cardiovascular Disease | DX: I25.10 Atherosclerotic heart disease of native coronary artery without angina pectoris (principal) | CPT/HCPCS: 93306; Q9950 ==